=== PATIENT | male | born 1965 | race Caucasian/White ===

== ENCOUNTER 2019-11-14 14:57 | Emergency (ER) | payer BC ==
[2019-11-14] MEDS ORDERED: ANTIBIOTIC28.4 GM T (17:20)
[2019-11-14] MEDS ORDERED: CEPHALEXIN500 M1 PO (17:20)
== END 2019-11-14 17:17 | disposition home or self-care (01) ==
LOC: ED 14:57
DX: S61.211A Laceration without foreign body of left index finger without damage to nail, initial encounter (principal); Z23 Encounter for immunization; W26.8XXA Contact with other sharp object(s), not elsewhere classified, initial encounter; Y93.89 Activity, other specified; Y92.89 Other specified places as the place of occurrence of the external cause; Y99.8 Other external cause status

== ENCOUNTER 2020-09-10 16:02 | Emergency (ER) | payer BC ==
[~2020-09-10] VITALS: Ht 185.4 cm; Wt 86.2 kg
[~2020-09-10 16:02] MED LIST: ANTIBIOTIC28.4 GM T; CEPHALEXIN500 M1 PO
[2020-09-10 16:56] LABS: BASO % 0.3 % (0.0-1.0); HEMATOCRIT 42.9 % (42.0-52.0); LYMPH # 1.1 10*3/uL (1.3-4.4); LYMPH % 8.3 % (27.0-41.0); MEAN CELL VOLUME 91.9 fl (80.0-94.0); MEAN CORPUSCULAR HGB CONC 33.8 g/dl (33.0-37.0); MEAN PLATELET VOLUME 9.8 fl (9.6-12.3); MONO # 0.9 10*3/uL (0.1-1.0); MONO % 6.6 % (3.0-9.0); NEUT # 11.2 10*3/uL (2.3-7.9); NEUT % 84.5 % (47.0-73.0); PLATELET COUNT AUTOMATED 230 10*3/uL (130-400); RED BLOOD COUNT 4.67 10*6/uL (4.50-5.90); RED CELL DISTRI WIDTH 13.2 % (0-14.5); WHITE BLOOD COUNT 13.2 10*3/uL (4.8-10.8)
[2020-09-10 17:12] LABS: ACT PARTIAL THROMBO TIME 22.5 SECONDS (20.0-32.1); ALBUMIN 4.2 gm/dl (3.1-4.5); ALKALINE PHOSPHATASE 56 U/L (45-117); BUN 15 mg/dl (7-24); CHLORIDE 106 mmol/L (98-107); CREATININE 0.82 mg/dL (0.70-1.30); INTERNATIONAL NORM RATIO 1.1 (2.0-3.5); LIPASE 160 U/L (73-393); POTASSIUM 3.2 mmol/L (3.5-5.1); SGOT/AST 24 IU/L (3-35); SGPT/ALT 27 U/L (12-78); SODIUM 138 mmol/L (136-145); TOTAL PROTEIN 7.6 gm/dL (6.4-8.2)
[2020-09-10 17:16] LABS: TROPONIN I < 0.015 ng/ml (<0.045)
== END 2020-09-10 17:05 | disposition short-term general hospital (02) ==
LOC: ED 16:02
PROVIDERS: Emergency Medicine
DX: I60.9 Nontraumatic subarachnoid hemorrhage, unspecified (principal); Z79.899 Other long term (current) drug therapy

== ENCOUNTER → 2021-12-09 | Outpatient (CLI) | payer BC ==
[2021-12-09 16:31] LABS: BASO % 0.5 % (0.0-1.0); EOS # 0.1 10*3/uL (0.0-0.4); EOS % 1.4 % (1.0-4.0); HEMATOCRIT 44.4 % (42.0-52.0); LYMPH # 1.5 10*3/uL (1.3-4.4); LYMPH % 18.5 % (27.0-41.0); MEAN CELL VOLUME 94.3 fl (80.0-94.0); MEAN CORPUSCULAR HGB 31.8 pg (27.0-31.0); MEAN CORPUSCULAR HGB CONC 33.8 g/dl (33.0-37.0); MEAN PLATELET VOLUME 9.4 fl (9.6-12.3); MONO # 1.1 10*3/uL (0.1-1.0); MONO % 13.5 % (3.0-9.0); NEUT # 5.5 10*3/uL (2.3-7.9); PLATELET COUNT AUTOMATED 266 10*3/uL (130-400); RED BLOOD COUNT 4.71 10*6/uL (4.50-5.90); RED CELL DISTRI WIDTH 12.9 % (0-14.5); WHITE BLOOD COUNT 8.3 10*3/uL (4.8-10.8)
[2021-12-09 16:45] LABS: ALKALINE PHOSPHATASE 65 U/L (45-117); BUN 11 mg/dl (7-24); CHLORIDE 108 mmol/L (98-107); CREATININE 0.85 mg/dL (0.70-1.30); POTASSIUM 4.4 mmol/L (3.5-5.1); SGOT/AST 14 IU/L (3-35); SGPT/ALT 32 U/L (12-78); SODIUM 140 mmol/L (136-145); TOTAL PROTEIN 7.4 gm/dL (6.4-8.2)
== END | disposition home or self-care (01) ==
LOC: LAB 16:12
PROVIDERS: ATTEND Student in an Organized Health Care Education/Training Program
DX: R19.7 Diarrhea, unspecified (principal)

== ENCOUNTER → 2022-09-28 | Outpatient (CLI) | payer BC | END | disposition home or self-care (01) | LOC: RAD 13:01 | PROVIDERS: ATTEND Family Medicine | DX: M47.816 Spondylosis without myelopathy or radiculopathy, lumbar region (principal); M25.78 Osteophyte, vertebrae; M41.55 Other secondary scoliosis, thoracolumbar region ==

== ENCOUNTER 2022-10-03 10:42 | Emergency (ER) | payer BC ==
[~2022-10-03] VITALS: Ht 182.8 cm; Wt 83.9 kg
[2022-10-03] MEDS ORDERED: METHOCARBAMOL500 M1 PO (11:13)
[2022-10-03] MEDS ORDERED: VIBRAMYCIN100 MG PO (11:13)
[2022-10-03] MEDS ORDERED: TRAMADOL HCL50 MG PO (11:13)
== END 2022-10-03 11:17 | disposition home or self-care (01) ==
LOC: ED 10:42
DX: M54.42 Lumbago with sciatica, left side (principal)

== ENCOUNTER 2022-10-05 05:05 | Emergency (ER) | payer BC ==
[~2022-10-05] VITALS: Ht 185.4 cm; Wt 83.9 kg
[~2022-10-05 05:05] MED LIST changes: +METHOCARBAMOL500 M1 PO; +TRAMADOL HCL50 MG PO; +VIBRAMYCIN100 MG PO
[2022-10-05] MEDS ORDERED: PREDNISONE20 M1 PO (07:30)
== END 2022-10-05 08:22 | disposition home or self-care (01) ==
LOC: ED 05:05
DX: M54.42 Lumbago with sciatica, left side (principal); Z98.890 Other specified postprocedural states